=== PATIENT | male | born 1960 | race Caucasian/White ===

== ENCOUNTER → 2016-12-23 | Outpatient (CLI) | payer BC ==
[~2016-12-23] MED LIST: IBU800 MG PO; VICO10300 PO
[2016-12-23 15:45] LABS: HEMATOCRIT 44.2 % (42.0-52.0); HEMOGLOBIN 14.8 g/dl (14.0-18.0); MEAN CELL VOLUME 96.9 fl (80.0-94.0); MEAN CORPUSCULAR HGB 32.5 pg (27.0-31.0); MEAN CORPUSCULAR HGB CONC 33.5 g/dl (33.0-37.0); MEAN PLATELET VOLUME 10.2 fl (9.6-12.3); PLATELET COUNT AUTOMATED 313 10*3/uL (130-400); RED BLOOD COUNT 4.56 10*6/uL (4.50-5.90); RED CELL DISTRI WIDTH 13.7 % (0-14.5); WHITE BLOOD COUNT 16.1 10*3/uL (4.8-10.8)
[2016-12-23 15:58] LABS: URIC ACID 3.2 mg/dL (3.5-7.2)
[2016-12-23 16:03] LABS: C-REACTIVE PROTEIN 21.7 MG/DL (0-0.3)
[2016-12-23 16:35] LABS: LYMPHOCYTE # 0.8 10*3/uL (1.3-4.4); MONOCYTE # 2.4 10*3/uL (0.1-1.0); NEUTROPHIL # 12.9 10*3/uL (2.3-7.9); NEUTROPHILS 80 % (47-73); TOTAL CELLS COUNTED 100 #CELLS
[2016-12-23 16:36] LABS: BURR CELLS FEW
[2016-12-23 16:37] LABS: PLATELET SUFFICIENCY NORMAL (NORMAL); POLYCHROMASIA SLIGHT
== END | disposition home or self-care (01) ==
LOC: LAB 14:10 → MRI 15:00
PROVIDERS: Physician Assistant
DX: S83.241A Other tear of medial meniscus, current injury, right knee, initial encounter (principal); M25.461 Effusion, right knee; X58.XXXA Exposure to other specified factors, initial encounter; Y93.89 Activity, other specified; Y92.89 Other specified places as the place of occurrence of the external cause; Y99.8 Other external cause status

== ENCOUNTER 2016-12-24 12:37 | Inpatient (IN) | payer BC ==
[~2016-12-24] VITALS: Ht 177.8 cm; Wt 67.6 kg
[2016-12-24] VITALS (8 sets, daily range): BP systolic 110–151; BP diastolic 61–84
--- NOTE | ~2016-12-24 | PR ---
[place], [place] PROGRESS NOTE NAME: ELMIRA RUSSO UNIT #: [id number] ROOM: 427 DOCTOR: VALENTÍN RALPH,OCTOBER BIRTHDATE: [birth year] DOS: SUBJECTIVE: The patient is a 56-year-old male who is being followed for multiple septic joints, he has a left septic wrist, right septic knee and probably a left peptic ankle. He had positive cultures for Strep pneumoniae from the right knee and now his blood cultures have Strep pneumoniae. He has had a 2D echocardiogram, which did not demonstrate vegetation, but the blood cultures have been communicated at my request up to Dr. Lyons per nursing and he is going to have a HOANG done on Wednesday. Urine cultures were negative. Repeat blood cultures were done this morning. He is alert and oriented, feeling somewhat better. Denies fevers, chills, nausea, vomiting or diarrhea. Continues to have pain in left wrist, right knee and little pain in the left ankle. The erythema and swelling is improving. He has been afebrile. VITAL SIGNS: Show temperature of 98.2, pulse 85, respirations 20, BP 107/61. LABORATORY DATA: Show vancomycin trough 17.7, WBCs are improving down to 20.2, platelets 434, BUN 11, creatinine 0.6. LFTs within normal limits. CURRENT MEDICATIONS: Include naproxen, vancomycin, Lovenox, Rocephin 2 grams IV daily, vitamin D, folic acid, Restoril, Zofran, and Tylenol. PHYSICAL EXAMINATION: GENERAL: A 56-year-old male, in no acute distress, nontoxic in appearance. HEAD, EYES, EARS, NOSE AND THROAT: Normocephalic, no thrush. LUNGS: Clear to auscultation bilaterally. Respirations even and unlabored. HEART: Regular rhythm. No murmur appreciated. ABDOMEN: Soft, nondistended. EXTREMITIES: Right lower extremity edema and erythema are improving, the erythema that was extending up his thigh has significantly improved, still with some erythema of the knee. Left medial wrist erythema and swelling also improving and mild left anterior ankle erythema improving. SKIN: Otherwise, warm, dry and intact, free of rashes. ASSESSMENT: Streptococcus pneumoniae septicemia with suspected endocarditis given his multiple septic joints. He is to have a HOANG on Wednesday. Continue the Rocephin and follow up on cultures and sensitivity, stop the vancomycin. Case was discussed with Dr. Dasia Liriano. GOYO LAURA CNP [place], [place] PROGRESS NOTE NAME: ELMIRA RUSSO UNIT #: [id number] ROOM: 427 DOCTOR: VALENTÍN RALPH BIRTHDATE: [birth year] DASIA LIRIANO MD CM:PNJOSE 14 18 VALENTÍN RALPH 12/27/161817 interface
--- NOTE | ~2016-12-24 | PR ---
[place], [place] PROGRESS NOTE NAME: ELMIRA RUSSO UNIT #: [id number] ROOM: 427 DOCTOR: HERI GRANDE,DASIA Pierce BIRTHDATE: [birth year] DOS: 12/26/2016 ADDENDUM INFECTIOUS DISEASE I agree with the above plans as described after reviewing the chart, follow the patient up clinically and adjust accordingly. DASIA LIRIANO MD CM:PNTRANS 1215 18 DASIA LIRIANO MD 12/29/16 1532 interface
--- NOTE | ~2016-12-24 | PR ---
[place], [place] PROGRESS NOTE NAME: ELMIRA RUSSO UNIT #: [id number] ROOM: 427 DOCTOR: HERI GRANDE,DASIA Pierce BIRTHDATE: [birth year] DOS: 12/27/2016 ADDENDUM I agree with the above plans as described. We will follow up clinically and make adjustments as the case evolves. DASIA LIRIANO MD CM:PNTRANS [id number] DASIA LIRIANO MD 12/29/16 1535 interface
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
--- NOTE | ~2016-12-24 | PR ---
[place], [place] PROGRESS NOTE NAME[id number] UNIT #: [id number] ROOM: 427 DOCTOR: VALENTÍN RALPH,OCTOBER BIRTHDATE: [birth year] DOS: 12/26/2016 SUBJECTIVE: The patient is a 56-year-old male who is being followed. He has a right septic knee. He had outpatient aspiration done of his right knee on 12/24/2016 by Orthopedics. It has grown strep pneumoniae, sensitivities are not back yet. He is currently on Rocephin and vancomycin. He has multiple septic joints including left wrist, right knee and possibly left ankle. The left ankle is not anywhere near is painful as the right knee. Also has right leg cellulitis with lymphangitis extending up towards the right groin. He is currently afebrile. WBCs 24.1, platelets 439, BUN 12, creatinine 0.69. CRP 21.8, he did have a 2D echo cardiogram today that demonstrated no vegetation. Blood cultures are negative thus far. He did not receive antibiotics as an outpatient prior to admission to his knowledge. Urine culture is negative. CURRENT MEDICATIONS: Include Lovenox, Rocephin, vancomycin, Restoril, Zofran, Tylenol, folic acid, vitamin D. VITAL SIGNS: Temperature 98.3, pulse 94, respirations 18, BP 131/64. HISTORY OF PRESENT ILLNESS: The patient is alert and oriented. Denies any nausea, vomiting, diarrhea. No rash or itch. No cough or shortness of breath. Continues with significant pain in the right knee, states it is slightly better as well as significant pain in the left wrist with limited range of motion. PHYSICAL EXAMINATION: GENERAL: A 56-year-old male, nontoxic in appearance. THROAT: Normocephalic, no thrush. LUNGS: Clear to auscultation bilaterally. Respirations even and unlabored. HEART: Regular rhythm. No murmur appreciated. ABDOMEN: Soft, nontender. EXTREMITIES: Right knee with significant erythema, which extends up nearly to his groin with an ascending lymphangitis as well as mild erythema of the left ankle. He has got +2 edema bilateral lower extremities. Left breast is also edematous with erythema on the anterior portion of the wrist with induration and tenderness. ASSESSMENT: Multiple septic joints with strep pneumoniae, possible endocarditis. PLAN: Continue the Rocephin and vancomycin for now. Case discussed with Dr. Dasia Liriano. Of note that there is no Orthopedics coverage here for the next 4 days. GOYO RAMO LAURA [place], [place] PROGRESS NOTE NAME: ELMIRA RUSSO UNIT #: [id number] ROOM: 427 DOCTOR: VALENTÍN RALPH BIRTHDATE: [birth year] DASIA LIRIANO MD CM:FALGUNI 38 21 VALENTÍN RALPH 12/26/161921 interface
[2016-12-24] MEDS ORDERED: IBU800 MG PO (13:00)
[2016-12-24] MEDS ORDERED: VICO10300 PO (13:02)
[2016-12-24 13:36] LABS: HEMATOCRIT 43.9 % (42.0-52.0); HEMOGLOBIN 14.8 g/dl (14.0-18.0); MEAN CELL VOLUME 95.6 fl (80.0-94.0); MEAN CORPUSCULAR HGB 32.2 pg (27.0-31.0); MEAN CORPUSCULAR HGB CONC 33.7 g/dl (33.0-37.0); MEAN PLATELET VOLUME 9.7 fl (9.6-12.3); PLATELET COUNT AUTOMATED 368 10*3/uL (130-400); RED BLOOD COUNT 4.59 10*6/uL (4.50-5.90); RED CELL DISTRI WIDTH 13.9 % (0-14.5); WHITE BLOOD COUNT 20.8 10*3/uL (4.8-10.8)
[2016-12-24 13:45] LABS: PROTHROMBIN TIME 10.3 SECONDS (9.0-12.4)
[2016-12-24 13:52] LABS: ALBUMIN 2.3 gm/dl (3.1-4.5); ALKALINE PHOSPHATASE 83 U/L (45-117); BILIRUBIN, TOTAL 0.4 mg/dl (0.2-1.0); BUN 21 mg/dl (7-24); CARBON DIOXIDE 23 mmol/L (21-32); CHLORIDE 98 mmol/L (98-107); CPK 15 U/L (39-308); EST GLOM FILT AFRICAN AMERICAN 59 ml/min; GLUCOSE 155 mg/dL (65-99); MAGNESIUM 2.3 mg/dL (1.5-2.1); POTASSIUM 3.7 mmol/L (3.5-5.1); SGOT/AST 12 IU/L (3-35); SGPT/ALT 11 U/L (12-78); SODIUM 133 mmol/L (136-145); TOTAL PROTEIN 7.5 gm/dL (6.4-8.2)
[2016-12-24 13:53] LABS: CKMB < 0.5 ng/ml (0.5-3.6); TROPONIN I < 0.015 ng/ml (<0.045)
[2016-12-24 13:56] LABS: LYMPHOCYTE # 2.1 10*3/uL (1.3-4.4); MONOCYTE # 1.5 10*3/uL (0.1-1.0); NEUTROPHIL # 17.3 10*3/uL (2.3-7.9); NEUTROPHILS 83 % (47-73); TOTAL CELLS COUNTED 100 #CELLS
[2016-12-24 13:58] LABS: PLATELET SUFFICIENCY NORMAL (NORMAL); TOXIC GRANULATION MODERATE; VACUOLATION OF NEUTROPHILS SLIGHT
[2016-12-25] VITALS: BP 124/62
[2016-12-25 06:50] LABS: HEMATOCRIT 39.6 % (42.0-52.0); HEMOGLOBIN 13.4 g/dl (14.0-18.0); MEAN CELL VOLUME 95.2 fl (80.0-94.0); MEAN CORPUSCULAR HGB 32.2 pg (27.0-31.0); MEAN CORPUSCULAR HGB CONC 33.8 g/dl (33.0-37.0); MEAN PLATELET VOLUME 9.6 fl (9.6-12.3); PLATELET COUNT AUTOMATED 420 10*3/uL (130-400); RED BLOOD COUNT 4.16 10*6/uL (4.50-5.90); RED CELL DISTRI WIDTH 13.8 % (0-14.5); WHITE BLOOD COUNT 23.4 10*3/uL (4.8-10.8)
[2016-12-25 07:15] LABS: EOSINOPHIL # 0.2 10*3/uL (0-0.4); EOSINOPHILS 1 % (1-4); LYMPHOCYTE # 0.7 10*3/uL (1.3-4.4); METAMYELOCYTES 1 % (0-0); MONOCYTE # 1.9 10*3/uL (0.1-1.0); NEUTROPHIL # 20.4 10*3/uL (2.3-7.9); NEUTROPHILS 87 % (47-73); PLATELET SUFFICIENCY HIGH (NORMAL); TOTAL CELLS COUNTED 100 #CELLS; TOXIC GRANULATION SLIGHT
[2016-12-25 07:29] LABS: CHLORIDE 99 mmol/L (98-107); POTASSIUM 3.3 mmol/L (3.5-5.1); SODIUM 135 mmol/L (136-145)
[2016-12-25 07:41] LABS: HEMOGLOBIN A1c 5.4 % (4.8-5.6)
[2016-12-25 07:48] LABS: BUN 15 mg/dl (7-24); CARBON DIOXIDE 24 mmol/L (21-32); CHOLESTEROL 88 mg/dL (<200); EST GLOM FILT AFRICAN AMERICAN > 60 ml/min; FREE T4 1.94 ng/dl (0.76-1.46); GLUCOSE 106 mg/dL (65-99); HDL CHOLESTEROL 24 mg/dl (40-60); LDL CHOLESTEROL 44 mg/dL (9-159); THYROID STIM HORMONE (HS) 0.336 uIU/ml (0.358-4.75); TRIGLYCERIDES 102 mg/dl (<150); VLDL CHOLESTEROL 20 mg/dL (6-40)
[2016-12-25 08:00] VITALS: BP 122/68
[2016-12-25 08:16] LABS: VITAMIN D, 25-HYDROXY 11.1 ng/mL (30-100)
[2016-12-25 08:17] LABS: FOLIC ACID 5.11 ng/mL (>5.38)
[2016-12-25 12:00] VITALS: BP 147/70
[2016-12-25 16:00] VITALS: BP 151/58
[2016-12-25 20:00] VITALS: BP 134/55
[2016-12-26] VITALS: BP 119/91
[2016-12-26 06:13] LABS: HEMATOCRIT 35.8 % (42.0-52.0); HEMOGLOBIN 11.8 g/dl (14.0-18.0); MEAN CELL VOLUME 95.5 fl (80.0-94.0); MEAN CORPUSCULAR HGB 31.5 pg (27.0-31.0); MEAN PLATELET VOLUME 9.3 fl (9.6-12.3); PLATELET COUNT AUTOMATED 439 10*3/uL (130-400); RED BLOOD COUNT 3.75 10*6/uL (4.50-5.90); RED CELL DISTRI WIDTH 13.7 % (0-14.5); WHITE BLOOD COUNT 24.1 10*3/uL (4.8-10.8)
[2016-12-26 06:37] LABS: BUN 12 mg/dl (7-24); CARBON DIOXIDE 27 mmol/L (21-32); CHLORIDE 98 mmol/L (98-107); EST GLOM FILT AFRICAN AMERICAN > 60 ml/min; GLUCOSE 99 mg/dL (65-99); POTASSIUM 3.6 mmol/L (3.5-5.1); SODIUM 133 mmol/L (136-145)
[2016-12-26 06:48] LABS: LYMPHOCYTE # 1.7 10*3/uL (1.3-4.4); METAMYELOCYTES 1 % (0-0); MONOCYTE # 2.9 10*3/uL (0.1-1.0); NEUTROPHIL # 19.3 10*3/uL (2.3-7.9); NEUTROPHILS 80 % (47-73); PLATELET SUFFICIENCY HIGH (NORMAL); POLYCHROMASIA SLIGHT; TOTAL CELLS COUNTED 100 #CELLS; TOXIC GRANULATION SLIGHT
[2016-12-26 07:08] LABS: HIV 1+2 AB + HIV1 P24 AG Non Reactive (Non Reactive)
[2016-12-26 08:00] VITALS: BP 122/64
[2016-12-26 08:12] LABS: RHEUMATOID ARTHRITIS FACTOR 15.5 IU/mL (0.0-13.9)
[2016-12-26 12:00] VITALS: BP 125/61
[2016-12-26 16:00] VITALS: BP 131/64
[2016-12-26 16:46] LABS: BILIRUBIN NEGATIVE (NEGATIVE); BLOOD NEGATIVE (NEGATIVE); CLARITY SL CLOUDY (CLEAR); COLOR YELLOW (YELLOW); GLUCOSE NEGATIVE (NEGATIVE); KETONE NEGATIVE (NEGATIVE); LEUKO ESTERASE NEGATIVE (NEGATIVE); NITRITE NEGATIVE (NEGATIVE); PH 5.5 (5.0-9.0); PROTEIN TRACE (NEGATIVE); UROBILINOGEN >= 8.0 E.U./dl (0.2-1.0)
[2016-12-26 16:57] LABS: RBC 0-2 rbc/hpf (0-2)
[2016-12-26 20:00] VITALS: BP 104/54
[2016-12-27] VITALS: BP 127/70
[2016-12-27 06:20] LABS: HEMOGLOBIN 11.8 g/dl (14.0-18.0); MEAN CELL VOLUME 95.2 fl (80.0-94.0); MEAN CORPUSCULAR HGB 31.2 pg (27.0-31.0); MEAN CORPUSCULAR HGB CONC 32.8 g/dl (33.0-37.0); MEAN PLATELET VOLUME 9.1 fl (9.6-12.3); PLATELET COUNT AUTOMATED 434 10*3/uL (130-400); RED BLOOD COUNT 3.78 10*6/uL (4.50-5.90); RED CELL DISTRI WIDTH 13.7 % (0-14.5); WHITE BLOOD COUNT 20.2 10*3/uL (4.8-10.8)
[2016-12-27 06:41] LABS: EOSINOPHIL # 0.2 10*3/uL (0-0.4); EOSINOPHILS 1 % (1-4); LYMPHOCYTE # 1.6 10*3/uL (1.3-4.4); NEUTROPHIL # 15.4 10*3/uL (2.3-7.9); NEUTROPHILS 76 % (47-73); PLASMA CELL 1 % (0-0); TOTAL CELLS COUNTED 100 #CELLS; TOXIC GRANULATION SLIGHT
[2016-12-27 06:42] LABS: PLATELET SUFFICIENCY HIGH (NORMAL); ROULEAUX SLIGHT
[2016-12-27 06:54] LABS: ALBUMIN 1.7 gm/dl (3.1-4.5); BUN 11 mg/dl (7-24); CARBON DIOXIDE 28 mmol/L (21-32); CHLORIDE 95 mmol/L (98-107); EST GLOM FILT AFRICAN AMERICAN > 60 ml/min; GLUCOSE 103 mg/dL (65-99); POTASSIUM 3.3 mmol/L (3.5-5.1); SGOT/AST 17 IU/L (3-35); SGPT/ALT 13 U/L (12-78); SODIUM 134 mmol/L (136-145)
[2016-12-27 06:56] LABS: ALKALINE PHOSPHATASE 66 U/L (45-117); BILIRUBIN, TOTAL 0.6 mg/dl (0.2-1.0)
[2016-12-27 08:00] VITALS: BP 132/71
[2016-12-27 12:00] VITALS: BP 123/62
[2016-12-27 16:00] VITALS: BP 107/61
[2016-12-27 20:00] VITALS: BP 136/64
[2016-12-28] VITALS: BP 118/64
[2016-12-28 06:43] LABS: HEMATOCRIT 36.3 % (42.0-52.0); HEMOGLOBIN 11.8 g/dl (14.0-18.0); MEAN CELL VOLUME 95.3 fl (80.0-94.0); MEAN CORPUSCULAR HGB CONC 32.5 g/dl (33.0-37.0); PLATELET COUNT AUTOMATED 465 10*3/uL (130-400); RED BLOOD COUNT 3.81 10*6/uL (4.50-5.90); RED CELL DISTRI WIDTH 13.6 % (0-14.5); WHITE BLOOD COUNT 15.5 10*3/uL (4.8-10.8)
[2016-12-28 07:08] LABS: EOSINOPHIL # 0.2 10*3/uL (0-0.4); EOSINOPHILS 1 % (1-4); LYMPHOCYTE # 0.8 10*3/uL (1.3-4.4); MONOCYTE # 1.2 10*3/uL (0.1-1.0); NEUTROPHIL # 13.3 10*3/uL (2.3-7.9); NEUTROPHILS 86 % (47-73); TOTAL CELLS COUNTED 100 #CELLS
[2016-12-28 07:09] LABS: PLATELET SUFFICIENCY HIGH (NORMAL); ROULEAUX SLIGHT
[2016-12-28 07:14] LABS: ALBUMIN 1.7 gm/dl (3.1-4.5); BILIRUBIN, TOTAL 0.5 mg/dl (0.2-1.0); BUN 9 mg/dl (7-24); CARBON DIOXIDE 28 mmol/L (21-32); CHLORIDE 101 mmol/L (98-107); EST GLOM FILT AFRICAN AMERICAN > 60 ml/min; GLUCOSE 112 mg/dL (65-99); MAGNESIUM 2.1 mg/dL (1.5-2.1); PHOSPHOROUS 2.7 mg/dL (2.5-4.9); POTASSIUM 3.6 mmol/L (3.5-5.1); SGOT/AST 21 IU/L (3-35); SGPT/ALT 17 U/L (12-78); SODIUM 138 mmol/L (136-145); TOTAL PROTEIN 6.1 gm/dL (6.4-8.2)
[2016-12-28 07:15] LABS: ALKALINE PHOSPHATASE 58 U/L (45-117)
[2016-12-28 08:00] VITALS: BP 114/64
[2016-12-28 16:00] VITALS: BP 114/67
[2016-12-28 20:00] VITALS: BP 112/66
[2016-12-29] VITALS (8 sets, daily range): BP systolic 105–135; BP diastolic 49–73
[2016-12-29 06:49] LABS: HEMATOCRIT 36.9 % (42.0-52.0); MEAN CELL VOLUME 96.3 fl (80.0-94.0); MEAN CORPUSCULAR HGB 31.3 pg (27.0-31.0); MEAN CORPUSCULAR HGB CONC 32.5 g/dl (33.0-37.0); PLATELET COUNT AUTOMATED 503 10*3/uL (130-400); RED BLOOD COUNT 3.83 10*6/uL (4.50-5.90); RED CELL DISTRI WIDTH 13.7 % (0-14.5); WHITE BLOOD COUNT 12.7 10*3/uL (4.8-10.8)
[2016-12-29 07:13] LABS: EOSINOPHIL # 0.3 10*3/uL (0-0.4); EOSINOPHILS 2 % (1-4); LYMPHOCYTE # 1.7 10*3/uL (1.3-4.4); MONOCYTE # 1.1 10*3/uL (0.1-1.0); MYELOCYTES 1 % (0-0); NEUTROPHIL # 9.5 10*3/uL (2.3-7.9); NEUTROPHILS 75 % (47-73); PLATELET SUFFICIENCY HIGH (NORMAL); TOTAL CELLS COUNTED 100 #CELLS
[2016-12-30] VITALS: BP 112/63
[2016-12-30 06:13] LABS: HEMATOCRIT 35.3 % (42.0-52.0); HEMOGLOBIN 11.5 g/dl (14.0-18.0); MEAN CELL VOLUME 96.2 fl (80.0-94.0); MEAN CORPUSCULAR HGB 31.3 pg (27.0-31.0); MEAN CORPUSCULAR HGB CONC 32.6 g/dl (33.0-37.0); MEAN PLATELET VOLUME 9.1 fl (9.6-12.3); PLATELET COUNT AUTOMATED 528 10*3/uL (130-400); RED BLOOD COUNT 3.67 10*6/uL (4.50-5.90); RED CELL DISTRI WIDTH 13.4 % (0-14.5); WHITE BLOOD COUNT 12.9 10*3/uL (4.8-10.8)
[2016-12-30 07:19] LABS: EOSINOPHIL # 0.3 10*3/uL (0-0.4); EOSINOPHILS 2 % (1-4); LYMPHOCYTE # 1.7 10*3/uL (1.3-4.4); NEUTROPHIL # 9.9 10*3/uL (2.3-7.9); NEUTROPHILS 77 % (47-73); TOTAL CELLS COUNTED 100 #CELLS
[2016-12-30 07:20] LABS: PLATELET SUFFICIENCY HIGH (NORMAL); TOXIC GRANULATION SLIGHT
[2016-12-30 08:00] VITALS: BP 112/62
[2016-12-30] MEDS ORDERED: Percocet 325 MG1 TAB PO (09:55)
[2016-12-30] MEDS ORDERED: NAPROXEN375 MG PO (09:55)
[2016-12-30] MEDS ORDERED: NATURE'S BLEND F1 MG PO (09:55)
[2016-12-30] MEDS ORDERED: CEFTRIAXON2 GM/50 ML IV (09:55)
[2016-12-30] MEDS ORDERED: D-1000 185 MG-11 TAB PO (09:55)
[2016-12-30 12:00] VITALS: BP 102/57
[2016-12-30 16:00] VITALS: BP 120/58
== END 2016-12-30 17:16 | disposition home or self-care (01) | DRG 871 ==
LOC: ED 12:37 → 4E 16:48 → EDHOLD 16:48 → 4E 17:13
PROVIDERS: Emergency Medicine; Internal Medicine; Internal Medicine Cardiovascular Disease; Internal Medicine Hospice and Palliative Medicine; Internal Medicine Infectious Disease
PROC: B246ZZ4 Ultrasonography of Right and Left Heart, Transesophageal (ICD-10-PCS; principal; 2016-12-29)
PROC: 02HV33Z Insertion of Infusion Device into Superior Vena Cava, Percutaneous Approach (ICD-10-PCS; 2016-12-30)
DX: A40.8 Other streptococcal sepsis (principal); N17.0 Acute kidney failure with tubular necrosis; E43 Unspecified severe protein-calorie malnutrition; R65.20 Severe sepsis without septic shock; D89.9 Disorder involving the immune mechanism, unspecified; E87.1 Hypo-osmolality and hyponatremia; M00.9 Pyogenic arthritis, unspecified; L03.114 Cellulitis of left upper limb; L03.119 Cellulitis of unspecified part of limb; F17.210 Nicotine dependence, cigarettes, uncomplicated; M65.849 Other synovitis and tenosynovitis, unspecified hand; M65.869 Other synovitis and tenosynovitis, unspecified lower leg; D75.89 Other specified diseases of blood and blood-forming organs; E83.41 Hypermagnesemia; R73.9 Hyperglycemia, unspecified; E53.8 Deficiency of other specified B group vitamins; E55.9 Vitamin D deficiency, unspecified; E87.6 Hypokalemia; D53.1 Other megaloblastic anemias, not elsewhere classified; D47.3 Essential (hemorrhagic) thrombocythemia; I00 Rheumatic fever without heart involvement; Z71.6 Tobacco abuse counseling; Z90.81 Acquired absence of spleen; Z82.49 Family history of ischemic heart disease and other diseases of the circulatory system; Z82.5 Family history of asthma and other chronic lower respiratory diseases; Z79.1 Long term (current) use of non-steroidal anti-inflammatories (NSAID); Z68.26 Body mass index [BMI] 26.0-26.9, adult

== ENCOUNTER → 2016-12-24 | Outpatient (CLI) | payer BC ==
[2016-12-24 14:59] LABS: BODY FLUID RBC < 1000 /uL; BODY FLUID TYPE SYNOVIAL; BODY FLUID WBC 4310 /uL
== END | disposition home or self-care (01) ==
LOC: LAB 13:22
PROVIDERS: Orthopaedic Surgery
DX: M25.461 Effusion, right knee (principal)

== ENCOUNTER → 2017-06-17 | Outpatient (CLI) | payer BC ==
[~2017-06-17] MED LIST changes: +CEFTRIAXON2 GM/50 ML IV; +D-1000 185 MG-11 TAB PO; +NAPROXEN375 MG PO; +NATURE'S BLEND F1 MG PO; +Percocet 325 MG1 TAB PO
== END | disposition home or self-care (01) ==
LOC: ORTHO 00:56
DX: M19.132 Post-traumatic osteoarthritis, left wrist (principal); M25.561 Pain in right knee; S83.241D Other tear of medial meniscus, current injury, right knee, subsequent encounter; X58.XXXD Exposure to other specified factors, subsequent encounter

== ENCOUNTER → 2021-01-06 | Day surgery (SDC) | payer BC ==
[~2021-01-06] VITALS: Ht 177.8 cm; Wt 72.6 kg
[~2021-01-06] MED LIST changes: +PRAVASTATIN SOD20 MG PO
[2021-01-06 07:16] VITALS: BP 85/60
[2021-01-06 08:20] VITALS: BP 117/55
[2021-01-06 08:35] VITALS: BP 99/54
[2021-01-06 08:50] VITALS: BP 109/59
== END | disposition home or self-care (01) ==
LOC: SDC 01-03 10:15
PROVIDERS: ATTEND Surgery
DX: Z12.11 Encounter for screening for malignant neoplasm of colon (principal); K57.30 Diverticulosis of large intestine without perforation or abscess without bleeding; Z79.899 Other long term (current) drug therapy

== ENCOUNTER → 2021-08-11 | Outpatient (CLI) | payer BC | END | disposition home or self-care (01) | LOC: RESCLI 00:49 | PROVIDERS: ATTEND Internal Medicine Nephrology | DX: Z76.89 Persons encountering health services in other specified circumstances (principal); F17.210 Nicotine dependence, cigarettes, uncomplicated; E78.5 Hyperlipidemia, unspecified; J44.9 Chronic obstructive pulmonary disease, unspecified; E55.9 Vitamin D deficiency, unspecified; Z79.899 Other long term (current) drug therapy; Z98.890 Other specified postprocedural states ==

== ENCOUNTER → 2022-12-16 | Outpatient (CLI) | payer BC | END | disposition home or self-care (01) | LOC: CT 13:45 | PROVIDERS: ATTEND Physician Assistant | DX: Z12.2 Encounter for screening for malignant neoplasm of respiratory organs (principal); J43.8 Other emphysema; J84.10 Pulmonary fibrosis, unspecified; F17.210 Nicotine dependence, cigarettes, uncomplicated ==

== ENCOUNTER → 2024-01-21 | Outpatient (CLI) | payer OTHER | END | disposition home or self-care (01) | LOC: CT 13:58 | PROVIDERS: ATTEND Physician Assistant | DX: Z12.2 Encounter for screening for malignant neoplasm of respiratory organs (principal); J44.9 Chronic obstructive pulmonary disease, unspecified; F17.201 Nicotine dependence, unspecified, in remission; I25.10 Atherosclerotic heart disease of native coronary artery without angina pectoris; Z90.49 Acquired absence of other specified parts of digestive tract ==